=== PATIENT | female | born 1995 | race African-American/Black ===

== ENCOUNTER 2024-04-15 12:49 | Emergency (ER) | payer SELFPAY ==
[2024-04-15] MEDS: Lidocaine 2% Viscous Solution 15 ML UD PO ONE (13:18)
[2024-04-15] MEDS: Benzocaine 20% Topical Spray UD MUCMEM ONE (13:18)
== END 2024-04-15 13:48 | disposition home or self-care (01) ==
LOC: MW.ED 12:49
DX: K04.7 Periapical abscess without sinus (principal); Z75.8 Other problems related to medical facilities and other health care
CPT/HCPCS: 99282; A9270